=== PATIENT | male | born 1960 | race Caucasian/White ===

== ENCOUNTER 2019-12-04 23:27 | Inpatient (IN) | payer OTHER, SELFPAY ==
--- NOTE | 2019-12-05 00:43 | PDOC.HHP ---
Hospitalist HPI - History of Present Illness Abdominal and chest pain History of Present Illness: Patient is a 59 year old male with PMH colitis, diverticulitis, depression, GI problems, frequent UTI, obesity transferred from [facility] for abdominal and chest pain. He developed abdominal pain and diarrhea a few weeks ago, after he was monitored in another hospital for a few days rectal bleeding, no endoscopy/ colonoscopy was done at that time. Ever since has had intermittent loose stools and abdominal pain. Associated symptoms include flatus, nausea, no vomiting or shortness of breath. Chest pain began today, as a band like sensation around chest, numbness in hands. He denies history of heart disease or cardiac workup of any kind. At outside hospital, he was tachycardic HR 104. EKG did not show acute findings. Normal cardiac enzymes. Pain is down to a 3 from a 5 with aspirin and a single nitroglycerin. CTA was completed and did not show PE. CT of the abdomen shows cecal colitis. He recieved ASA, cipro, flagyl at other hospital. Of note, there was a pancreatic lesion observed on CT chest as incindental finding, lipase was around 150. 100 pages outside records reviewed, pertinent findings include: wbc 11.9, ct t/a /p impression of cecal wall thickening with inflammation, appendicitis could not be excluded, colonic mass could not be excluded, hypoechoic pancreatic mass observed, short term followup recommended. No PE observed. CXR low lung volumes , atalectasis. Hospitalist ROS - Review of Systems Eyes: denies: pain, vision change, conjunctivae inflammation, eyelid inflammation, redness, other ENT: denies: ear pain, ear discharge, nose pain, nose discharge, nose congestion , mouth pain, mouth swelling, throat pain, throat swelling, other Respiratory: denies: cough, dry, shortness of breath, hemoptysis, SOB with excertion, pleuritic pain, sputum, wheezing, other Cardiovascular: reports: chest pain. denies: palpitations, orthopnea, paroxysmal noc. dyspnea, edema, light headedness, other Gastrointestinal: reports: nausea, abdominal pain, diarrhea. denies: vomiting, constipation, melena, hematochezia, other Genitourinary: denies: dysuria, frequency, incontinence, hematuria, retention, other Musculoskeletal: denies: neck pain, shoulder pain, arm pain, back pain, hand pain, leg pain, foot pain, other Skin: denies: rash, lesions, cassidy, bruising, other Neurological: denies: weakness, numbness, incoordination, change in speech, confusion, seizures, other All other systems reviewed; all pertinent +/- noted in HPI/Subj Hospitalist History - Past Medical History Other Medical History: colitis, diverticulitis, depression, GI problems, frequent UTI, obesity - Past Surgical History Past Surgical History: reports: no pertinent history - Family History Family History: reports: no pertinent history - Social History Smoking Status: Never smoker Alcohol: reports: None Drugs: reports: none - Exam General Appearance: NAD, awake alert Eye: PERRL, anicteric sclera ENT: normocephalic atraumatic, no oropharyngeal lesions, moist mucosa Neck: supple, symmetric, no JVD, no thyromegaly, no lymphadenopathy, no carotid bruit Heart: RRR, no murmur, no gallops, no rubs, normal peripheral pulses Respiratory: CTAB, no wheezes, no rales, no ronchi, normal chest expansion, no tachypnea, normal percussion Gastrointestinal: soft, non-tender, non-distended, normal bowel sounds, no palpable masses, no hepatomegaly, no splenomegaly, no bruit Extremities: no cyanosis, no clubbing, no edema Skin: normal turgor, no lesions, no rashes Neurological: cranial nerve grossly intact, normal sensation to touch, no weakness, no focal deficits, no new deficit Musculoskeletal: normal tone, normal strength, no muscle wasting Psychiatric: normal affect, normal behavior, A&O x 3 Hospitalist Results - Labs Lab results: Troponin I 0.013 ng/mL (< 0.028) 12/04/19 23:54 Additional comment: VITAL SIGNS Blanca Dec 05, 2019 00:01 NAOMI Schmid Lee BP: 144/87 Pulse: 82 Resp: 16 Temp: 98.2 (Oral) Pain: 2 O2 sat: 99 on (Room Air) Time: 12/05/2019 00:01. 100 pages outside records reviewed, see hpi for pertinent findings - EKG Interpretation EKG: NSR 86 bpm nonspecific t wave changes Hospitalist H&P A/P - Plan Plan: Patient is a 59 year old male with PMH colitis, diverticulitis, depression, rectal bleed, frequent UTI, obesity transferred from [facility] for abdominal and chest pain. # colitis/diverticulitis # sepsis due to colitis - tachycardia, leukocytosis # pancreatic mass - admit to floor - IVF - continue cipro/flagyl - consider repeat CT in 24-48 hours (got contrast already) to rule out appendicitis and see if pancreatic mass can be characterized, alternately outpatient imaging (CT/MRI) could be pursued to rule out pancreatic cancer - should have colonoscopy after recovered from this illness, mass could not be ruled out and had recent rectal bleeding with no explanation # depression - resume home meds once med rec complete # recent rectal bleed - no colonoscopy performed, patient monitored and discharged, this was recent so will opt for SCD for dvt ppx # atalectasis - IS # chest pain - continue ASA/statin, has never had heart workup, trend troponins and consider stress test before discharge, though symptoms have improved # DVT/GI ppx
[2019-12-05] MEDS ORDERED: Guaifenesin DM 100-10/5 ML UDCUP PO PRN (01:13)
[2019-12-05] MEDS ORDERED: Labetalol HCl 100 MG/20 ML VIAL SLOW IVP PRN (01:13)
[2019-12-05] MEDS ORDERED: Promethazine HCl 12.5 MG in Sodium Chloride 0.9% 50 ML IVPB PRN (01:13)
[2019-12-05] MEDS ORDERED: Morphine 2 MG/ML VIAL SLOW IVP PRN (01:13)
[2019-12-05] MEDS ORDERED: hydrALAZINE 20 MG/ML VIAL SLOW IVP PRN (01:13)
[2019-12-05] MEDS ORDERED: Acetaminophen 325 MG TAB PO PRN (01:13)
[2019-12-05] MEDS ORDERED: Ondansetron PF 4 MG/2 ML Vial IVP PRN (01:13)
[2019-12-05] MEDS ORDERED: cloNIDine 0.1 MG TAB PO PRN (01:13)
[2019-12-05] MEDS ORDERED: Electrolyte Replacement Protoc 1 EACH EACH FS PRN (01:15)
[2019-12-05] MEDS ORDERED: Sodium Chloride 0.9% 1,000 ML IV SCH (01:45)
[2019-12-05] MEDS: Sodium Chloride 0.9% 1,000 ML IV SCH ×2 (02:16→15:02)
[2019-12-05 02:47] LABS: #Basophils 0.1 thou/uL (0.0-0.2); #Eosinphils 0.1 thou/uL (0.0-0.7); #Monocytes 1.3 thou/uL (0.11-0.59); #Neutrophils 7.8 thou/uL (1.40-6.50); %Basophils 0.8 % (0.0-1.0); %Eosinophils 0.8 % (0.0-10.0); %Lymphocytes 17.5 % (21.0-51.0); %Monocytes 11.8 % (0.0-10.0); Hemoglobin 15.8 g/dL (14.0-18.0); Mean Corpuscular HGB CONC 34.1 g/dL (32.0-36.0); Mean Corpuscular Hemoglobin 32.4 pg (27.0-31.0); Mean Corpuscular Volume 94.8 fL (78.0-98.0); Mean Platelet Volume 9.2 fL (7.4-10.4); Platelet Count 187 thou/uL (130-400); RBC Distribution Width 11.8 % (11.5-14.5); White Blood Cell (WBC) Count 11.3 thou/uL (4.8-10.8)
[2019-12-05 03:13] LABS: Troponin I 0.023 ng/mL (< 0.028)
[2019-12-05 03:19] LABS: Anion Gap 14 mmol/L (10-20); BUN (Urea Nitrogen) 14 mg/dL (8.4-25.7); Calc. Creatinine Clearance 163 mL/min (70-130); Calcium 8.8 mg/dL (7.8-10.44); Carbon Dioxide 20 mmol/L (22-29); Chloride 108 mmol/L (98-107); Estimated GFR-MDRD 66; Glucose 115 mg/dL (70-105); Magnesium 2.1 mg/dL (1.6-2.6); Potassium 4.3 mmol/L (3.5-5.1); Sodium 138 mmol/L (136-145)
[2019-12-05] MEDS: Cipro 250 MG TAB PO SCH ×2 (05:24→19:50)
[2019-12-05 07:01] LABS: Troponin I 0.017 ng/mL (< 0.028)
[2019-12-05] MEDS: Aspirin 81 mg Enteric Coated Tablet PO SCH (08:00)
[2019-12-05] MEDS: metroNIDAZOLE 500 MG TAB PO SCH ×3 (08:00→21:00)
[2019-12-05] MEDS: Famotidine 20 MG TAB PO SCH ×2 (08:00→21:01)
[2019-12-05 13:29] LABS: SARS-CoV-2 MS2 Positive; SARS-CoV-2 N Gene Negative; SARS-CoV-2 S Gene Negative; SARS-CoV-2 by NAA Not Detected (NotDetected); SARS-CoV-2 orf1ab Negative
--- NOTE | 2019-12-05 14:05 | PDOC.HOSPP ---
- Subjective Encounter Date: 12/05/19 Encounter Time: 14:03 Subjective: Pt seen and examined by me for the first time. Chart and records reviewed. Pt presented due to abdominal pain at OSH and was transferred here after CT a/p showed cecal inflammation and evidence of colitis. Pt states that his abdominal pain has improved slightly. Bowel movements with lots of gas and greasy stool, but no diarrhea, blood, or melena. Pt denies N/V. Denies chest pain, SOB, palpitations. has been tolerating PO fluids. - Objective Vital Signs & Weight: Vital Signs (12 hours) Temp Pulse Resp BP Pulse Ox 12/05/19 12:00 98.5 F 83 18 124/78 96 12/05/19 07:06 98.7 F 85 18 117/74 98 12/05/19 03:05 98.4 F 89 17 127/78 99 Weight Admit Weight 357 lb 11.2 oz Weight 162 lb 4 oz I&O: 12/04/19 12/05/19 12/06/19 06:59 06:59 06:59 Intake Total 1421 Balance 1421 Result Diagrams: 12/05/19 02:25 12/05/19 02:25 Hospitalist ROS - Review of Systems Constitutional: denies: fever, chills, sweats, weakness, malaise, other Eyes: denies: vision change ENT: denies: nose congestion, throat pain Respiratory: denies: cough, dry, shortness of breath, hemoptysis, SOB with excertion, pleuritic pain, sputum, wheezing, other Cardiovascular: denies: chest pain, palpitations, orthopnea, paroxysmal noc. dyspnea, edema, light headedness, other Gastrointestinal: reports: abdominal pain. denies: nausea, vomiting, diarrhea, constipation, melena, hematochezia, other Genitourinary: denies: dysuria, frequency, incontinence, hematuria, retention, other Skin: denies: rash Neurological: denies: weakness, numbness - Medication Medications: Active Medications Generic Name Dose Route Start Last Admin Trade Name Freq PRN Reason Stop Dose Admin Aspirin 81 mg 12/05/19 09:00 12/05/19 08:00 Ecotrin PO 81 mg DAILY APURVA Administration Ciprofloxacin 250 mg 12/05/19 06:00 12/05/19 05:24 Cipro PO 250 mg 0600,2000 APURVA Administration Famotidine 20 mg 12/05/19 09:00 12/05/19 08:00 Pepcid PO 20 mg BID APURVA Administration Sodium Chloride 1,000 mls @ 75 mls/hr 12/05/19 01:45 12/05/19 02:16 Normal Saline 0.9% IV 1,000 mls .[id number] APURVA Administration Metronidazole 500 mg 12/05/19 09:00 12/05/19 08:00 Flagyl PO 500 mg TID APURVA Administration - Exam General Appearance: NAD, awake alert Eye: anicteric sclera ENT: normocephalic atraumatic, no oropharyngeal lesions, moist mucosa Neck: supple, symmetric, no JVD, no thyromegaly, no lymphadenopathy, no carotid bruit Heart: RRR, no murmur, no gallops, no rubs, normal peripheral pulses Respiratory: CTAB, no wheezes, no rales, no ronchi, normal chest expansion, no tachypnea, normal percussion Gastrointestinal: soft, non-distended, normal bowel sounds, no palpable masses, no hepatomegaly, no splenomegaly, no bruit, tender to palpation Extremities: no cyanosis, no clubbing, no edema Skin: normal turgor, no lesions, no rashes Neurological: cranial nerve grossly intact, normal sensation to touch, no weakness, no focal deficits, no new deficit Psychiatric: normal affect, normal behavior, A&O x 3 Hosp A/P (1) History of diverticulitis Code(s): Z87.19 - PERSONAL HISTORY OF OTHER DISEASES OF THE DIGESTIVE SYSTEM Status: Acute (2) Chest pain Code(s): R07.9 - CHEST PAIN, UNSPECIFIED Status: Acute (3) Pancreatic mass Status: Acute - Plan 59M with pmhx of diverticulitis, recurrent UTIs, obesity, and recent admission in September of 2019 for lower GIB who presented to OSH for chest/abdominal pain found to have colitis on CT a/p. Colitis of presumed infectious origin: Pt with 2 day history of abdominal pain and mild intermittent diarrhea. CT a/p showed cecal mucosal wall thickening with enlarged RLQ mesenteric and paracecal lymph nodes. Pt started on cipro/flagyl. Abd pain improving. Abdominal exam is non-peritoneal. Afebrile, with WBC of 11.3. HD stable. Plan: -Continue cipro/flagyl -Trend WBC -Clear liquid diet -Serial abdominal exams -Consider GI/General surgery consult if clinically worsens Chest pain: Pt described both lower abdominal pain and epigastric band-like pain. Received ASA and nitro at OSH which improved his pain. Denies any repeated episodes. EKG NSR with no ischemic changes. Troponin flat. CTA at OSH negative for PE. Plan: -Telemetry -Continue ASA 81 mg daily -Continue Atorvastatin 40 mg daily -Outpatient f/u with PCP. Pancreatic Mass: CT of a/p showed a hypoechoic lesion in the pancreas. Lipase at OSH 150. Will need outpatient follow up. Plan: -Outpatient follow up Hx of lower GIB: Pt with recent admission in September 2019 for lower GIB. Was supposed to get colonoscopy as f/u, but never completed. Pt denies any recent bleeding episodes. Will need outpatient f/u. Plan: -Outpatient colonoscopy DVT prophylaxis: lovenox Case discussed with attending physician, Dr. Quan.
[2019-12-05] MEDS: Atorvastatin Calcium 40 MG TAB PO SCH (21:00)
[2019-12-05] MEDS: Enoxaparin Sodium 40 MG/0.4 ML SYRINGE SC SCH (21:01)
[2019-12-06] MEDS: Sodium Chloride 0.9% 1,000 ML IV SCH ×2 (03:47→18:40)
[2019-12-06 05:32] LABS: #Basophils 0.1 thou/uL (0.0-0.2); #Eosinphils 0.2 thou/uL (0.0-0.7); #Lymphocytes 1.7 thou/uL (1.20-3.40); #Monocytes 0.9 thou/uL (0.11-0.59); #Neutrophils 4.3 thou/uL (1.40-6.50); %Basophils 0.9 % (0.0-1.0); %Eosinophils 2.6 % (0.0-10.0); %Lymphocytes 24.1 % (21.0-51.0); %Monocytes 12.8 % (0.0-10.0); %Neutrophils 59.6 % (42.0-75.0); Hemoglobin 14.5 g/dL (14.0-18.0); Mean Corpuscular HGB CONC 33.3 g/dL (32.0-36.0); Mean Corpuscular Hemoglobin 31.6 pg (27.0-31.0); Mean Corpuscular Volume 94.9 fL (78.0-98.0); Mean Platelet Volume 9.6 fL (7.4-10.4); Platelet Count 157 thou/uL (130-400); RBC Distribution Width 11.7 % (11.5-14.5); White Blood Cell (WBC) Count 7.2 thou/uL (4.8-10.8)
[2019-12-06] MEDS: Cipro 250 MG TAB PO SCH ×2 (05:50→20:20)
[2019-12-06 05:57] LABS: Anion Gap 11 mmol/L (10-20); BUN (Urea Nitrogen) 9 mg/dL (8.4-25.7); Calc. Creatinine Clearance 199 mL/min (70-130); Calcium 8.5 mg/dL (7.8-10.44); Carbon Dioxide 22 mmol/L (22-29); Chloride 107 mmol/L (98-107); Estimated GFR-MDRD 82; Glucose 111 mg/dL (70-105); Magnesium 1.9 mg/dL (1.6-2.6); Potassium 3.9 mmol/L (3.5-5.1); Sodium 136 mmol/L (136-145)
[2019-12-06] MEDS ORDERED: Magnesium 2 GM/50 ML 2 GM in Premix Bag 1 BAG IVPB SCH (06:45)
[2019-12-06 08:09] LABS: Bilirubin Negative (Negative); Blood, Urine Negative (Negative); Clarity Clear (Clear); Glucose, Urine (Dipstick) Normal (Negative); Ketone, Urine Negative (Negative); Leukocyte 75 Leu/uL (Negative); Nitrite Negative (Negative); Protein, Urine (Dipstick) Negative (Neg-Trace); Specific Gravity, Urine 1.008 (1.002-1.036); Urobilinogen Normal mg/dL (Less than 2); pH, Urine 5.5 (5.0-9.0)
[2019-12-06 08:20] LABS: Bacteria/HPF Rare-Few HPF (None Seen); RBC/HPF 0-3 HPF (0-3); Squamous Epithelial 0-3 HPF (0-3); WBC/HPF 0-3 HPF (0-3)
[2019-12-06] MEDS: metroNIDAZOLE 500 MG TAB PO SCH ×3 (09:13→20:21)
[2019-12-06] MEDS: Famotidine 20 MG TAB PO SCH ×2 (09:13→20:21)
[2019-12-06] MEDS: Aspirin 81 mg Enteric Coated Tablet PO SCH (09:13)
--- NOTE | 2019-12-06 14:29 | PDOC.HOSPP ---
- Subjective Encounter Date: 12/06/19 Subjective: The patient reported some loose stools today. - Objective Vital Signs & Weight: Vital Signs (12 hours) Temp Pulse Resp BP Pulse Ox 12/06/19 11:19 98.3 F 76 18 136/83 98 12/06/19 07:37 98.3 F 79 19 125/79 99 12/06/19 03:47 98.1 F 72 16 136/85 98 Weight Admit Weight 357 lb 11.2 oz Weight 362 lb I&O: 12/05/19 12/06/19 12/07/19 06:59 06:59 06:59 Intake Total 1421 3170 Output Total 300 150 Balance 1421 2870 -150 Result Diagrams: 12/06/19 04:48 12/06/19 04:48 Hospitalist ROS - Medication Medications: Active Medications Generic Name Dose Route Start Last Admin Trade Name Freq PRN Reason Stop Dose Admin Aspirin 81 mg 12/05/19 09:00 12/06/19 09:13 Ecotrin PO 81 mg DAILY APURVA Administration Atorvastatin Calcium 40 mg 12/05/19 21:00 12/05/19 21:00 Lipitor PO 40 mg HS APURVA Administration Ciprofloxacin 250 mg 12/05/19 06:00 12/06/19 05:50 Cipro PO 250 mg 0600,2000 APURVA Administration Enoxaparin Sodium 40 mg 12/05/19 21:00 12/05/19 21:01 Lovenox SC 40 mg 2100 APURVA Administration Famotidine 20 mg 12/05/19 09:00 12/06/19 09:13 Pepcid PO 20 mg BID APURVA Administration Sodium Chloride 1,000 mls @ 75 mls/hr 12/05/19 01:45 12/06/19 03:47 Normal Saline 0.9% IV 1,000 mls .[id number] APURVA Administration Metronidazole 500 mg 12/05/19 09:00 12/06/19 09:13 Flagyl PO 500 mg TID APURVA Administration Sodium Chloride 10 ml 12/06/19 09:00 12/06/19 09:14 Flush - Normal Saline IVF Not Given Q12HR APURVA - Exam General Appearance: awake alert ENT: normocephalic atraumatic Neck: supple, no JVD Respiratory: normal chest expansion, no tachypnea Gastrointestinal: soft Neurological: cranial nerve grossly intact, no focal deficits Hosp A/P (1) Colitis presumed infectious Code(s): K52.9 - NONINFECTIVE GASTROENTERITIS AND COLITIS, UNSPECIFIED Status : Acute (2) History of diverticulitis Code(s): Z87.19 - PERSONAL HISTORY OF OTHER DISEASES OF THE DIGESTIVE SYSTEM Status: Acute (3) Pancreatic mass Status: Acute - Plan The patient abdominal pain is improving. He is able to tolerate liquid diet today. No nausea or vomiting. Continue antibiotics. His creatinine level improved so I will go ahead and order CT scan of the abdomen and pelvis with IV contrast to further characterize the reported pancreatic mass.
--- NOTE | 2019-12-06 17:40 | CT ---
CT ABDOMEN AND PELVIS WITH AND WITHOUT IV CONTRAST: 12/06/19 PROVIDED CLINICAL HISTORY: Pancreatic mass. FINDINGS: No comparison examinations are available. The visualized lung bases are free of significant opacity. There is an ill-defined hypodense mass pre sent within the proximal body of the pancreas measuring about 1.2 cm in greatest transverse dimension . This is best appreciated on the arterial phase imaging but is not associated with arterial phase of enhancement. No additional pancreatic mass is evident. There is no pancreatic ductal dilatation. The re is absence of a normal appearing pancreatic tail. The liver, spleen, kidneys and adrenal glands appear unremarkable. There is irregular mural thickening and associated mass involving the cecum. This measures at least 7 cm in craniocaudal dimension and at least 5.3 x 5.3 cm in greatest transverse dimensions. There is a dilated and abnormally enhancing appendix, without surrounding inflammatory fat stranding. There are numerous abnormally enlarged lymph nodes present within the right lower quadrant mesentery as well a s nodular thickening of the retroperitoneal fat posterior to the cecum. There is no evidence for bowel obstruction. No free fluid or free air is evident. The prostate gland appears enlarged. There is no evidence for additional regional lymph node enlargem ent. Vascular calcifications are seen. The osseous structures demonstrate no concerning lytic or blastic lesions. Prominent lumbar spine deg enerative changes are seen. IMPRESSION: 1. 1.2 cm pancreatic body mass suspicious for pancreatic malignancy such as adenocarcinoma. 2. Cecal mass compatible with malignancy with associated abnormality of the right lower quadrant mesentery lymph nodes and adjacent retroperitoneal fat. 3. There is a dilated and abnormal enhancing appearance to the appendix without surrounding fat stranding changes. This could reflect changes of early appendicitis on the basis of obstruction due t o the mass. Neoplastic involvement could also be considered. Surgical consultation is recommended. POS: MARIEL
[2019-12-06] MEDS: Atorvastatin Calcium 40 MG TAB PO SCH (20:20)
[2019-12-06] MEDS: Enoxaparin Sodium 40 MG/0.4 ML SYRINGE SC SCH (20:21)
[2019-12-07] MEDS ORDERED: Phenazopyridine HCl 100 MG TAB PO SCH (00:30)
[2019-12-07] MEDS: HYDROcodone/Acetaminophen 5/325 mg Tablet PO PRN ×4 (00:49→20:18)
[2019-12-07 05:24] LABS: #Basophils 0.1 thou/uL (0.0-0.2); #Eosinphils 0.2 thou/uL (0.0-0.7); #Lymphocytes 1.6 thou/uL (1.20-3.40); #Neutrophils 5.2 thou/uL (1.40-6.50); %Basophils 0.6 % (0.0-1.0); %Eosinophils 2.9 % (0.0-10.0); %Lymphocytes 19.5 % (21.0-51.0); %Monocytes 12.1 % (0.0-10.0); %Neutrophils 64.9 % (42.0-75.0); Hemoglobin 14.7 g/dL (14.0-18.0); Mean Corpuscular HGB CONC 33.2 g/dL (32.0-36.0); Mean Corpuscular Hemoglobin 31.5 pg (27.0-31.0); Mean Corpuscular Volume 94.9 fL (78.0-98.0); Mean Platelet Volume 9.5 fL (7.4-10.4); Platelet Count 169 thou/uL (130-400); RBC Distribution Width 11.9 % (11.5-14.5); Red Blood Cell (RBC) Count 4.66 mill/uL (4.70-6.10)
[2019-12-07] MEDS: Cipro 250 MG TAB PO SCH ×2 (05:35→20:45)
[2019-12-07 05:39] LABS: Anion Gap 11 mmol/L (10-20); BUN (Urea Nitrogen) 8 mg/dL (8.4-25.7); Calc. Creatinine Clearance 177 mL/min (70-130); Calcium 8.7 mg/dL (7.8-10.44); Carbon Dioxide 24 mmol/L (22-29); Chloride 106 mmol/L (98-107); Estimated GFR-MDRD 71; Glucose 103 mg/dL (70-105); Magnesium 2.2 mg/dL (1.6-2.6); Potassium 3.8 mmol/L (3.5-5.1); Sodium 137 mmol/L (136-145)
[2019-12-07] MEDS: Sodium Chloride 0.9% 1,000 ML IV SCH ×2 (06:24→20:09)
[2019-12-07] MEDS: metroNIDAZOLE 500 MG TAB PO SCH ×3 (07:59→20:16)
[2019-12-07] MEDS: Phenazopyridine HCl 100 MG TAB PO SCH ×3 (07:59→18:35)
[2019-12-07] MEDS: Famotidine 20 MG TAB PO SCH ×2 (07:59→20:16)
[2019-12-07] MEDS: Aspirin 81 mg Enteric Coated Tablet PO SCH (07:59)
[2019-12-07] MEDS ORDERED: Tamsulosin HCl 0.4 MG CAP PO SCH (10:15)
--- NOTE | 2019-12-07 10:16 | PDOC.HOSPP ---
- Subjective Subjective: Assuming care: This is an unfortunate 59 years old gentleman, who was admitted 2 days ago for presumed diverticulitis/colitis, he was started on IV antibiotics and conservative mgt, his symptoms now improved. There was an incidental finding on his initial CT abdomen showed possible pancreatic mass. Repeated CT abdomen pelvic with contrast, showed a 1.2 cm pancreatic mass, as well as cecal mass, and enlarged appendix concerning for underlying malignancy. At this point , patient is tolerating regular diet. His abdominal pain has improved. He does complain of urinary frequency, and retention. Patient reported that he had been experiencing with abdominal discomfort for the last few months, no significant weight change. Patient denies any history of endoscopic evaluation. Family history significant for sister with lung cancer with mets to the bones. No family history of colon cancer or pancreatic cancer. - Objective Vital Signs & Weight: Vital Signs (12 hours) Temp Pulse Resp BP Pulse Ox 12/07/19 08:00 98.2 F 87 18 135/78 99 12/07/19 04:25 98.1 F 24 L 76 H 138/87 95 12/06/19 23:30 98.7 F 88 22 H 153/83 H 97 Weight Admit Weight 357 lb 11.2 oz Weight 362 lb I&O: 12/06/19 12/07/19 12/08/19 06:59 06:59 06:59 Intake Total 3170 1850 Output Total 300 150 Balance 2870 1700 Result Diagrams: 12/07/19 04:21 12/07/19 04:21 Hospitalist ROS - Medication Medications: Active Medications Generic Name Dose Route Start Last Admin Trade Name Freq PRN Reason Stop Dose Admin Hydrocodone Bitart/Acetaminophen 1 tab 12/05/19 01:13 12/07/19 00:49 [place] 5/325 PO 1 tab Q4H PRN Administration Moderate Pain (4-6) Aspirin 81 mg 12/05/19 09:00 12/07/19 07:59 Ecotrin PO 81 mg DAILY APURVA Administration Atorvastatin Calcium 40 mg 12/05/19 21:00 12/06/19 20:20 Lipitor PO 40 mg HS APURVA Administration Ciprofloxacin 250 mg 12/05/19 06:00 12/07/19 05:35 Cipro PO 250 mg 0600,2000 APURVA Administration Famotidine 20 mg 12/05/19 09:00 12/07/19 07:59 Pepcid PO 20 mg BID APURVA Administration Sodium Chloride 1,000 mls @ 75 mls/hr 12/05/19 01:45 12/07/19 06:24 Normal Saline 0.9% IV 1,000 mls .[id number] APURVA Administration Metronidazole 500 mg 12/05/19 09:00 12/07/19 07:59 Flagyl PO 500 mg TID APURVA Administration Phenazopyridine HCl 100 mg 12/07/19 09:00 12/07/19 07:59 Pyridium PO 100 mg PC APURVA Administration Sodium Chloride 10 ml 12/06/19 09:00 12/07/19 08:00 Flush - Normal Saline IVF Not Given Q12HR APURVA - Exam General Appearance: NAD, awake alert Eye: PERRL, anicteric sclera ENT: normocephalic atraumatic, no oropharyngeal lesions Neck: supple, no JVD Heart: RRR, no murmur, no gallops Respiratory: CTAB, no wheezes Gastrointestinal: soft, non-tender, normal bowel sounds Gastrointestinal - other findings: obese Extremities: no cyanosis, no clubbing, no edema Skin: normal turgor Neurological: cranial nerve grossly intact, no focal deficits Musculoskeletal: normal tone, normal strength Psychiatric: normal affect, normal behavior, A&O x 3 Hosp A/P - Plan ASSESSMENT and plan: This is unfortunate 59 years old gentleman who was presented with abdominal discomfort/diarrhea, initially admitted on 12/05/2019 for presumed diverticulitis/colitis. Further work-up on repeated CT scan, demonstrated 1.2 pancreatic mass, as well as cecal mass and enlarged appendix concerning for possible underlying malignancy. #1.2 cm pancreatic mass and cecal mass (7 x 5.3 x 3.3 cm) concerning for underlying malignancy, unknown primary suspect pancreatic cancer. #Dilated appendix - early appendicitis vs neoplastic process on CT - abd exam benign #Presumed diverticulits/Colitis #Urinary retention/Frequency - UA negative, suspect underlying BPH #Morbid obesity with BMI of 49.1 kg/m 12/07/19 Clinically improving, patient is tolerating regular diet and abd pain has improved; however, will change to clear liquid diet, with anticipation further work-up is required given CT findings. Consult on GI and surgery for further work-up. Patient will likely need tissue biopsy. Check tumor markers including CEA, CA 19-9, PSA Given his urinary retention/frequency, his UA was unremarkable. We will do a bladder scan, start him on Flomax empirically. Continue empiric IV antibiotics for now. Hold Lovenox, start SCD for DVT prophylaxis with anticipation of further procedure is needed; will resume Lovenox once w/u complete.
--- NOTE | 2019-12-07 11:55 | EKG ---
Test Reason : Blood Pressure : / mmHG Vent. Rate : 086 BPM Atrial Rate : 086 BPM P-R Int : 146 ms QRS Dur : 086 ms QT Int : 376 ms P-R-T Axes : 035 -28 033 degrees QTc Int : 449 ms Normal sinus rhythm Possible Lateral infarct , age undetermined Abnormal ECG Confirmed by DAVE DURAN ([id number]), editor managing newspaper MISAEL MARTINEZ ([id number]) on 12/07/2019 11:55:24 AM Referred By: Confirmed By:DAVE DURAN
[2019-12-07 12:39] LABS: CEA, Serum 3.31 ng/mL (< or = 5.0)
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
[2019-12-07] MEDS: Atorvastatin Calcium 40 MG TAB PO SCH (20:16)
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
[2019-12-08 04:13] LABS: #Basophils 0.1 thou/uL (0.0-0.2); #Eosinphils 0.1 thou/uL (0.0-0.7); #Lymphocytes 1.4 thou/uL (1.20-3.40); #Monocytes 1.1 thou/uL (0.11-0.59); %Basophils 0.5 % (0.0-1.0); %Eosinophils 0.6 % (0.0-10.0); %Lymphocytes 13.6 % (21.0-51.0); %Monocytes 9.9 % (0.0-10.0); %Neutrophils 75.3 % (42.0-75.0); Hemoglobin 14.1 g/dL (14.0-18.0); Mean Corpuscular HGB CONC 33.7 g/dL (32.0-36.0); Mean Corpuscular Hemoglobin 32.1 pg (27.0-31.0); Mean Corpuscular Volume 95.3 fL (78.0-98.0); Mean Platelet Volume 9.2 fL (7.4-10.4); Platelet Count 156 thou/uL (130-400); RBC Distribution Width 11.7 % (11.5-14.5); White Blood Cell (WBC) Count 10.6 thou/uL (4.8-10.8)
[2019-12-08 04:35] LABS: ALT (SGPT) 14 U/L (8-55); AST (SGOT) 30 U/L (5-34); Albumin 3.5 g/dL (3.5-5.0); Alkaline Phosphatase 64 U/L (40-110); Anion Gap 11 mmol/L (10-20); BUN (Urea Nitrogen) 7 mg/dL (8.4-25.7); Bilirubin, Total 0.6 mg/dL (0.2-1.2); Calc. Creatinine Clearance 174 mL/min (70-130); Calcium 8.9 mg/dL (7.8-10.44); Carbon Dioxide 24 mmol/L (22-29); Chloride 106 mmol/L (98-107); Estimated GFR-MDRD 70; Globulin 2.4 g/dL (2.4-3.5); Glucose 112 mg/dL (70-105); Potassium 4.2 mmol/L (3.5-5.1); Protein, Total 5.9 g/dL (6.0-8.3); Sodium 137 mmol/L (136-145)
[2019-12-08 04:47] LABS: INR-International Normal Ratio 1.2; Prothrombin Time 15.6 sec (12.0-14.7)
[2019-12-08] MEDS: Cipro 250 MG TAB PO SCH ×2 (06:08→19:57)
[2019-12-08] MEDS ORDERED: ALPRAZolam 0.5 MG TAB PO PRN (08:11)
[2019-12-08] MEDS: Aspirin 81 mg Enteric Coated Tablet PO SCH (09:28)
[2019-12-08] MEDS: Famotidine 20 MG TAB PO SCH ×2 (09:28→19:57)
[2019-12-08] MEDS: metroNIDAZOLE 500 MG TAB PO SCH ×3 (09:28→19:57)
[2019-12-08] MEDS: Phenazopyridine HCl 100 MG TAB PO SCH ×3 (09:29→18:19)
[2019-12-08] MEDS: Tamsulosin HCl 0.4 MG CAP PO SCH (09:29)
[2019-12-08] MEDS: Sodium Chloride 0.9% 1,000 ML IV SCH (09:32)
--- NOTE | 2019-12-08 14:20 | PDOC.HOSPP ---
- Subjective Subjective: Feeling much better after had Vasques placed. No acute event overnight. appreciate input from specialists - Objective Vital Signs & Weight: Vital Signs (12 hours) Temp Pulse Resp BP BP Pulse Ox 12/08/19 11:38 98.5 F 111 H 24 H 168/80 H 95 12/08/19 08:00 95 12/08/19 07:55 99.0 F 89 18 170/76 H 98 12/08/19 04:00 98.2 F 93 18 131/70 93 L Weight Admit Weight 357 lb 11.2 oz Weight 362 lb I&O: 12/07/19 12/08/19 12/09/19 06:59 06:59 06:59 Intake Total 1850 2720 Output Total 150 2075 700 Balance 1700 645 -700 Result Diagrams: 12/08/19 03:31 12/08/19 03:31 Radiology Reviewed by me: Yes EKG Reviewed by me: Yes Hospitalist ROS - Medication Medications: Active Medications Generic Name Dose Route Start Last Admin Trade Name Freq PRN Reason Stop Dose Admin Hydrocodone Bitart/Acetaminophen 1 tab 12/05/19 01:13 12/07/19 20:18 Lovilia 5/325 PO 1 tab Q4H PRN Administration Moderate Pain (4-6) Aspirin 81 mg 12/05/19 09:00 12/08/19 09:28 Ecotrin PO 81 mg DAILY APURVA Administration Atorvastatin Calcium 40 mg 12/05/19 21:00 12/07/19 20:16 Lipitor PO 40 mg HS APURVA Administration Ciprofloxacin 250 mg 12/05/19 06:00 12/08/19 06:08 Cipro PO 250 mg 06,1999 APURVA Administration Famotidine 20 mg 12/05/19 09:00 12/08/19 09:28 Pepcid PO 20 mg BID APURVA Administration Sodium Chloride 1,000 mls @ 75 mls/hr 12/05/19 01:45 12/08/19 09:32 Normal Saline 0.9% IV 1,000 mls .[id number] APURVA Administration Metronidazole 500 mg 12/05/19 09:00 12/08/19 09:28 Flagyl PO 500 mg TID APURVA Administration Morphine Sulfate 2 mg 12/05/19 01:13 12/07/19 22:43 Morphine SLOW IVP 2 mg Q4H PRN Administration Moderate to Severe Pain (4-10) Phenazopyridine HCl 100 mg 12/07/19 09:00 12/08/19 09:29 Pyridium PO 100 mg PC APURVA Administration Sodium Chloride 10 ml 12/06/19 09:00 12/08/19 09:29 Flush - Normal Saline IVF 10 ml Q12HR APURVA Administration Tamsulosin HCl 0.4 mg 12/08/19 09:00 12/08/19 09:29 Flomax PO 0.4 mg DAILY APURVA Administration Hosp A/P - Plan General Appearance: NAD, awake alert Eye: PERRL, anicteric sclera ENT: normocephalic atraumatic, no oropharyngeal lesions Neck: supple, no JVD Heart: RRR, no murmur, no gallops Respiratory: CTAB, no wheezes Gastrointestinal: soft, non-tender, normal bowel sounds Gastrointestinal - other findings: obese Extremities: no cyanosis, no clubbing, no edema Skin: normal turgor Neurological: cranial nerve grossly intact, no focal deficits Musculoskeletal: normal tone, normal strength Psychiatric: normal affect, normal behavior, A&O x 3 ASSESSMENT and plan: This is unfortunate 59 years old gentleman who was presented with abdominal discomfort/diarrhea, initially admitted on 12/05/2019 for presumed diverticulitis/colitis. Further work-up on repeated CT scan, demonstrated 1.2 pancreatic mass, as well as cecal mass and enlarged appendix concerning for possible underlying malignancy. #1.2 cm pancreatic mass and cecal mass (7 x 5.3 x 3.3 cm) concerning for underlying malignancy, unknown primary suspect pancreatic cancer. #Dilated appendix - early appendicitis vs neoplastic process on CT - abd exam benign #Presumed diverticulits/Colitis #Urinary retention/Frequency - UA negative, suspect underlying BPH #Morbid obesity with BMI of 49.1 kg/m 12/08/19 Cont current empiric IV abx. GI plan for colonoscopy tomorrow. Leave Vasques in place. Consider voiding trial in couple days prior to discharge. Pt will need further workup at tertiary care center including EUS and eval by surgical oncologist for Whipple procedure, which cannot be done here at our facility. He has no coverage, so referral is difficult. Will consult our CM. PSA slightly elevated. CEA wnl. CA 19-9 pending. Cont supportive cares. Pt is quite depressed given his current situation, will start him on Zoloft at bedtime and prn Xanax. No HI/SI. 12/07/19 Clinically improving, patient is tolerating regular diet and abd pain has improved; however, will change to clear liquid diet, with anticipation further work-up is required given CT findings. Consult on GI and surgery for further work-up. Patient will likely need tissue biopsy. Check tumor markers including CEA, CA 19-9, PSA Given his urinary retention/frequency, his UA was unremarkable. We will do a bladder scan, start him on Flomax empirically. Continue empiric IV antibiotics for now. Hold Lovenox, start SCD for DVT prophylaxis with anticipation of further procedure is needed; will resume Lovenox once w/u complete.
--- NOTE | 2019-12-08 14:28 | PRG ---
DATE OF SERVICE: 12/08/2019 SUBJECTIVE: Mr. Kitchen had a Vasques catheter placed by Urology and his suprapubic pain immediately resolved. A liter of fluid was drained immediately with placement of the catheter. OBJECTIVE: VITAL SIGNS: Temperature 98.5, pulse 111, and blood pressure 168/ 80. GENERAL: He is in no acute distress. Alert and oriented x3. LUNGS: Clear to auscultation bilaterally. HEART: Tachycardic. S1 and S2. ABDOMEN: Soft, nontender, and nondistended. Bowel sounds are present. EXTREMITIES: No lower extremity edema. LABORATORY DATA: White blood cell count 10.6, hemoglobin 14.1, and platelets 156. Creatinine 1.09, albumin 3.5. IMPRESSION: 1. Right colon mass. 2. Question of colitis and intermittent diarrhea. Stool studies have been sent and are pending. 3. Small pancreatic mass measuring 1.2 cm. 4. Obstructive uropathy, relieved with Vasques catheter placement. RECOMMENDATIONS: If his stool studies are negative for Clostridioides difficile or other pathogen, we will proceed with colonoscopy tomorrow as scheduled. Job ID: [id number] MTDD
[2019-12-08] MEDS ORDERED: GoLYTELY 4,000 ml Bottle PO SCH (16:00)
[2019-12-08] MEDS: Atorvastatin Calcium 40 MG TAB PO SCH (19:57)
--- NOTE | 2019-12-08 21:24 | PDOC.GSPN ---
Surgery Progress Note: Subj - Subjective Narrative: Lower abdominal tenderness has basically resolved after placement of Vasques catheter. He had a large amount of retained urine. No further diarrhea. Abdomen is soft nontender nondistended. Colonoscopy is planned tomorrow. No new recommendations and no immediate plans for surgery. Surgery Progress Note: Obj - Vital signs Vital signs: Vital Signs - Most Recent Temp Pulse Resp BP Pulse Ox 98.6 F 105 H 16 140/83 98 12/08/19 19:59 12/08/19 19:59 12/08/19 19:59 12/08/19 19:59 12/08/19 19:59 Surgery Progress Note: Results - Labs Result Diagrams: 12/08/19 03:31 12/08/19 03:31
[2019-12-09] MEDS: Sodium Chloride 0.9% 1,000 ML IV SCH ×2 (00:09→12:25)
[2019-12-09] MEDS: Cipro 250 MG TAB PO SCH ×2 (06:09→19:07)
[2019-12-09] MEDS: Aspirin 81 mg Enteric Coated Tablet PO SCH (08:04)
[2019-12-09] MEDS: Famotidine 20 MG TAB PO SCH ×2 (08:30→20:29)
[2019-12-09] MEDS: Phenazopyridine HCl 100 MG TAB PO SCH ×3 (08:30→19:07)
[2019-12-09] MEDS: metroNIDAZOLE 500 MG TAB PO SCH ×3 (08:30→20:29)
[2019-12-09] MEDS: Tamsulosin HCl 0.4 MG CAP PO SCH (08:30)
[2019-12-09] MEDS ORDERED: Promethazine HCl 25 MG/ML VIAL SLOW IVP PRN (10:52)
[2019-12-09] MEDS ORDERED: Ondansetron HCl/PF 4 MG/2 ML Vial IVP PRN (10:52)
[2019-12-09] MEDS ORDERED: Meperidine HCl/PF 25 MG/ML VIAL SLOW IVP PRN (10:52)
[2019-12-09] MEDS ORDERED: Promethazine HCl 25 MG/ML VIAL IM PRN (10:52)
[2019-12-09] MEDS ORDERED: Ketorolac Tromethamine 30 MG/ML VIAL IVP PRN (10:52)
[2019-12-09] MEDS ORDERED: PROPOFOL 200 MG/20 ML VIAL ONE (11:39)
[2019-12-09] MEDS ORDERED: Lidocaine 1% PF 5 ML VIAL ONE (11:39)
--- NOTE | 2019-12-09 12:26 | OP ---
DATE OF PROCEDURE: 12/09/2019 PROCEDURE PERFORMED: Colonoscopy with biopsy and snare polypectomy. PREOPERATIVE DIAGNOSIS: Abnormal CT scan of the abdomen showing a mass in the right colon. DESCRIPTION OF PROCEDURE: Informed consent was obtained from the patient. He was sedated with total intravenous anesthesia. The rectal exam was performed and revealed a prominent prostate. Rectal exam was otherwise normal. The preparation quality was fair with staining of yellow stool throughout the colon, but this was very thin later and good views were obtained overall. The colonoscope was advanced to the terminal ileum. The mucosa of the terminal ileum was normal. The ileocecal valve was prominent and appeared impacted by a large ulcerated mass in the cecum, which obscures the entire cecum. Multiple biopsies were obtained from the mass. I removed a 6 mm polyp from the hepatic flexure by snare cautery polypectomy. I removed a 5 mm polyp from the distal transverse colon by cold snare polypectomy. I removed a 6 mm polyp from the descending colon by cold snare polypectomy. I removed a 1 cm polyp from the sigmoid colon by snare cautery polypectomy. Retroflexed views in the rectum revealed moderate internal hemorrhoids. IMPRESSION: 1. Large cecum mass biopsied. 2. 6 mm hepatic flexure polyp. 3. 5 mm transverse colon polyp. 4. 6 mm descending polyp. 5. 1 cm sigmoid polyp. 6. Moderate internal hemorrhoids. RECOMMENDATIONS: 1. Await histopathology. 2. The case has been discussed with General Surgery. He has a 1.5 cm mass in the body of the pancreas and Surgery would like to know the status of this mass before proceeding with colon surgery. Recommendation therefore at this point is referral for endoscopic ultrasound of the pancreatic mass and then consultation with Oncologic Surgery and Oncology. 3. He also had urinary retention and elevated PSA and required Vasques catheter placement prior to this procedure having been performed. This will require followup by Urology. 4. Transfer to [place] can be considered as an inpatient for further evaluation versus discharge and outpatient followup. However, the patient's lack of insurance will make all this complicated. Job ID: [id number]
--- NOTE | 2019-12-09 13:13 | PDOC.HOSPP ---
- Subjective Subjective: Patient underwent colonoscopy this morning with polypectomy and biopsy of the large cecal mass. Patient tolerated procedure well. Patient was seen examined at bedside. He is currently sitting up eating lunch. He denies any abdominal pain. Appreciate input from GI and surgery. - Objective Vital Signs & Weight: Vital Signs (12 hours) Temp Pulse Resp BP Pulse Ox 12/09/19 08:00 98.7 F 104 H 20 145/80 H 97 Weight Admit Weight 357 lb 11.2 oz Weight 362 lb I&O: 12/08/19 12/09/19 12/10/19 06:59 06:59 06:59 Intake Total 2720 4000 Output Total 8026 2425 Balance 645 1575 Result Diagrams: 12/08/19 03:31 12/08/19 03:31 Hospitalist ROS - Medication Medications: Active Medications Generic Name Dose Route Start Last Admin Trade Name Freq PRN Reason Stop Dose Admin Hydrocodone Bitart/Acetaminophen 1 tab 12/05/19 01:13 12/07/19 20:18 [place] 5/325 PO 1 tab Q4H PRN Administration Moderate Pain (4-6) Alprazolam 0.5 mg 12/08/19 08:11 12/08/19 22:13 Xanax PO 0.5 mg TIDPRN PRN Administration Anxiety Aspirin 81 mg 12/05/19 09:00 12/09/19 08:04 Ecotrin PO Not Given DAILY APURVA Atorvastatin Calcium 40 mg 12/05/19 21:00 12/08/19 19:57 Lipitor PO 40 mg HS APURVA Administration Ciprofloxacin 250 mg 12/05/19 06:00 12/09/19 06:09 Cipro PO Not Given APURVA Famotidine 20 mg 12/05/19 09:00 12/09/19 08:30 Pepcid PO 20 mg BID APURVA Administration Sodium Chloride 1,000 mls @ 75 mls/hr 12/05/19 01:45 12/09/19 00:09 Normal Saline 0.9% IV Not Given .[id number] APURVA Metronidazole 500 mg 12/05/19 09:00 12/09/19 08:30 Flagyl PO 500 mg TID APURVA Administration Morphine Sulfate 2 mg 12/05/19 01:13 12/07/19 22:43 Morphine SLOW IVP 2 mg Q4H PRN Administration Moderate to Severe Pain (4-10) Phenazopyridine HCl 100 mg 12/07/19 09:00 12/09/19 08:30 Pyridium PO 100 mg PC APURVA Administration Sertraline HCl 50 mg 12/08/19 21:00 12/08/19 20:01 Zoloft PO Not Given HS APURVA Sodium Chloride 10 ml 12/06/19 09:00 12/09/19 08:31 Flush - Normal Saline IVF 10 ml Q12HR APURVA Administration Tamsulosin HCl 0.4 mg 12/08/19 09:00 12/09/19 08:30 Flomax PO 0.4 mg DAILY AUPRVA Administration Hosp A/P - Plan General Appearance: NAD, awake alert Eye: PERRL, anicteric sclera ENT: normocephalic atraumatic, no oropharyngeal lesions Neck: supple, no JVD Heart: RRR, no murmur, no gallops Respiratory: CTAB, no wheezes Gastrointestinal: soft, non-tender, normal bowel sounds Gastrointestinal - other findings: obese Extremities: no cyanosis, no clubbing, no edema Skin: normal turgor Neurological: cranial nerve grossly intact, no focal deficits Musculoskeletal: normal tone, normal strength Psychiatric: normal affect, normal behavior, A&O x 3 ASSESSMENT and plan: This is unfortunate 59 years old gentleman who was presented with abdominal discomfort/diarrhea, initially admitted on 12/05/2019 for presumed diverticulitis/colitis. Further work-up on repeated CT scan, demonstrated 1.2 pancreatic mass, as well as cecal mass and enlarged appendix concerning for possible underlying malignancy. #1.2 cm pancreatic mass and cecal mass (7 x 5.3 x 3.3 cm) concerning for underlying malignancy, unknown primary suspect pancreatic cancer. s/p colonoscopy on 12/09/19 #Dilated appendix - early appendicitis vs neoplastic process on CT - abd exam benign #Presumed diverticulitis/Colitis #Urinary retention/Frequency - UA negative, suspect underlying BPH. Vasques placed. #Morbid obesity with BMI of 49.1 kg/m 12/09/19 s/p colonoscopy with biopsied of cecal mass. PATH pending. Pt will likely need to transfer to tertiary care center or follow up with surgical oncologist and GI as outpatient for further eval of pancreatic mass. Pt is unfunded and not from here locally. Will consult our CM for further assistance. Will keep Vasques in for 1 more days, and voiding trial in AM. cont Flomax. cont empiric IV abx. Appreciate input from specialists. 12/08/19 Cont current empiric IV abx. GI plan for colonoscopy tomorrow. Leave Vasques in place. Consider voiding trial in couple days prior to discharge. Pt will need further workup at tertiary care center including EUS and eval by surgical oncologist for Whipple procedure, which cannot be done here at our facility. He has no coverage, so referral is difficult. Will consult our CM. PSA slightly elevated. CEA wnl. CA 19-9 pending. Cont supportive cares. Pt is quite depressed given his current situation, will start him on Zoloft at bedtime and prn Xanax. No HI/SI. 12/07/19 Clinically improving, patient is tolerating regular diet and abd pain has improved; however, will change to clear liquid diet, with anticipation further work-up is required given CT findings. Consult on GI and surgery for further work-up. Patient will likely need tissue biopsy. Check tumor markers including CEA, CA 19-9, PSA Given his urinary retention/frequency, his UA was unremarkable. We will do a bladder scan, start him on Flomax empirically. Continue empiric IV antibiotics for now. Hold Lovenox, start SCD for DVT prophylaxis with anticipation of further procedure is needed; will resume Lovenox once w/u complete.
[2019-12-09] MEDS: Atorvastatin Calcium 40 MG TAB PO SCH (20:29)
[2019-12-10] MEDS: Sodium Chloride 0.9% 1,000 ML IV SCH ×3 (02:33→16:55)
[2019-12-10] MEDS: Cipro 250 MG TAB PO SCH ×2 (06:24→20:59)
[2019-12-10] MEDS: Aspirin 81 mg Enteric Coated Tablet PO SCH (08:28)
[2019-12-10] MEDS: Famotidine 20 MG TAB PO SCH ×2 (08:28→20:59)
[2019-12-10] MEDS: Tamsulosin HCl 0.4 MG CAP PO SCH (08:28)
[2019-12-10] MEDS: metroNIDAZOLE 500 MG TAB PO SCH ×3 (08:28→20:59)
[2019-12-10] MEDS: Phenazopyridine HCl 100 MG TAB PO SCH ×3 (08:29→18:51)
[2019-12-10 13:37] VITALS: BMI 49.1
--- NOTE | 2019-12-10 15:14 | PDOC.HOSPP ---
- Subjective Subjective: no acute event overnight, feeling well RN reports pt had some hematochezia. he just had biopsy of cecal mass yesterday , so it's expected. - Objective Vital Signs & Weight: Vital Signs (12 hours) Temp Pulse Resp BP Pulse Ox 12/10/19 08:00 98.2 F 84 16 134/79 94 L Weight Admit Weight 357 lb 11.2 oz Weight 362 lb I&O: 12/09/19 12/10/19 12/11/19 06:59 06:59 06:59 Intake Total 4000 1760 Output Total 2425 1150 300 Balance 1575 610 -300 Result Diagrams: 12/08/19 03:31 12/08/19 03:31 Hospitalist ROS - Medication Medications: Active Medications Generic Name Dose Route Start Last Admin Trade Name Freq PRN Reason Stop Dose Admin Hydrocodone Bitart/Acetaminophen 1 tab 12/05/19 01:13 12/07/19 20:18 [place] 5/325 PO 1 tab Q4H PRN Administration Moderate Pain (4-6) Alprazolam 0.5 mg 12/08/19 08:11 12/08/19 22:13 Xanax PO 0.5 mg TIDPRN PRN Administration Anxiety Aspirin 81 mg 12/05/19 09:00 12/10/19 08:28 Ecotrin PO 81 mg DAILY APURVA Administration Atorvastatin Calcium 40 mg 12/05/19 21:00 12/09/19 20:29 Lipitor PO 40 mg HS APURVA Administration Ciprofloxacin 250 mg 12/05/19 06:00 12/10/19 06:24 Cipro PO 250 mg 0600,2000 APURVA Administration Famotidine 20 mg 12/05/19 09:00 12/10/19 08:28 Pepcid PO 20 mg BID APURVA Administration Sodium Chloride 1,000 mls @ 75 mls/hr 12/05/19 01:45 12/10/19 08:30 Normal Saline 0.9% IV 1,000 mls .[id number] APURVA Administration Metronidazole 500 mg 12/05/19 09:00 12/10/19 14:26 Flagyl PO 500 mg TID APURVA Administration Morphine Sulfate 2 mg 12/05/19 01:13 12/07/19 22:43 Morphine SLOW IVP 2 mg Q4H PRN Administration Moderate to Severe Pain (4-10) Phenazopyridine HCl 100 mg 12/07/19 09:00 12/10/19 14:26 Pyridium PO 100 mg PC APURVA Administration Sertraline HCl 50 mg 12/08/19 21:00 12/09/19 20:32 Zoloft PO Not Given HS APURVA Sodium Chloride 10 ml 12/06/19 09:00 12/10/19 08:29 Flush - Normal Saline IVF 10 ml Q12HR APURVA Administration Tamsulosin HCl 0.4 mg 12/08/19 09:00 12/10/19 08:28 Flomax PO 0.4 mg DAILY APURVA Administration Hosp A/P - Plan General Appearance: NAD, awake alert Eye: PERRL, anicteric sclera ENT: normocephalic atraumatic, no oropharyngeal lesions Neck: supple, no JVD Heart: RRR, no murmur, no gallops Respiratory: CTAB, no wheezes Gastrointestinal: soft, non-tender, normal bowel sounds Gastrointestinal - other findings: obese Extremities: no cyanosis, no clubbing, no edema Skin: normal turgor Neurological: cranial nerve grossly intact, no focal deficits Musculoskeletal: normal tone, normal strength Psychiatric: normal affect, normal behavior, A&O x 3 ASSESSMENT and plan: This is unfortunate 59 years old gentleman who was presented with abdominal discomfort/diarrhea, initially admitted on 12/05/2019 for presumed diverticulitis/colitis. Further work-up on repeated CT scan, demonstrated 1.2 pancreatic mass, as well as cecal mass and enlarged appendix concerning for possible underlying malignancy. #1.2 cm pancreatic mass and cecal mass (7 x 5.3 x 3.3 cm) concerning for underlying malignancy, unknown primary suspect pancreatic cancer. s/p colonoscopy on 12/09/19 #Dilated appendix - early appendicitis vs neoplastic process on CT - abd exam benign #Presumed diverticulitis/Colitis #Urinary retention/Frequency - UA negative, suspect underlying BPH. Vasques placed. #Morbid obesity with BMI of 49.1 kg/m #Hematochezia - post procedure 12/10/19 Post procedure hematochezia is expected. Reassured patient. Rpt CBC in AM tomorrow. Monitor CBC Voiding trial today. Pt's family member plan to come pick him up tomorrow, lives 3 hr away. Path pending. Expecting d/c tomorrow AM if medically stable, with outpatient follow up. Plan of cares, d/w pt and nursing staff at bedside 12/09/19 s/p colonoscopy with biopsied of cecal mass. PATH pending. Pt will likely need to transfer to tertiary care center or follow up with surgical oncologist and GI as outpatient for further eval of pancreatic mass. Pt is unfunded and not from here locally. Will consult our CM for further assistance. Will keep Vasques in for 1 more days, and voiding trial in AM. cont Flomax. cont empiric IV abx. Appreciate input from specialists. 12/08/19 Cont current empiric IV abx. GI plan for colonoscopy tomorrow. Leave Vasques in place. Consider voiding trial in couple days prior to discharge. Pt will need further workup at tertiary care center including EUS and eval by surgical oncologist for Whipple procedure, which cannot be done here at our facility. He has no coverage, so referral is difficult. Will consult our CM. PSA slightly elevated. CEA wnl. CA 19-9 pending. Cont supportive cares. Pt is quite depressed given his current situation, will start him on Zoloft at bedtime and prn Xanax. No HI/SI. 12/07/19 Clinically improving, patient is tolerating regular diet and abd pain has improved; however, will change to clear liquid diet, with anticipation further work-up is required given CT findings. Consult on GI and surgery for further work-up. Patient will likely need tissue biopsy. Check tumor markers including CEA, CA 19-9, PSA Given his urinary retention/frequency, his UA was unremarkable. We will do a bladder scan, start him on Flomax empirically. Continue empiric IV antibiotics for now. Hold Lovenox, start SCD for DVT prophylaxis with anticipation of further procedure is needed; will resume Lovenox once w/u complete.
[2019-12-10 16:36] LABS: #Basophils 0.1 thou/uL (0.0-0.2); #Eosinphils 0.1 thou/uL (0.0-0.7); #Lymphocytes 1.3 thou/uL (1.20-3.40); #Monocytes 0.8 thou/uL (0.11-0.59); #Neutrophils 5.7 thou/uL (1.40-6.50); %Basophils 0.8 % (0.0-1.0); %Eosinophils 1.3 % (0.0-10.0); %Lymphocytes 15.9 % (21.0-51.0); %Monocytes 10.4 % (0.0-10.0); %Neutrophils 71.6 % (42.0-75.0); Hemoglobin 13.5 g/dL (14.0-18.0); Mean Corpuscular HGB CONC 34.1 g/dL (32.0-36.0); Mean Corpuscular Hemoglobin 32.2 pg (27.0-31.0); Mean Corpuscular Volume 94.3 fL (78.0-98.0); Mean Platelet Volume 8.6 fL (7.4-10.4); Platelet Count 158 thou/uL (130-400); Red Blood Cell (RBC) Count 4.18 mill/uL (4.70-6.10); White Blood Cell (WBC) Count 7.9 thou/uL (4.8-10.8)
[2019-12-10] MEDS ORDERED: GoLYTELY 4,000 ml Bottle PO SCH (20:00)
--- NOTE | 2019-12-10 20:33 | PRG ---
DATE OF SERVICE: 12/10/2019 SUBJECTIVE: Overall, the patient feels fine. However, he has had 5 episodes of bloody stool today. Last episode occurred an hour ago, consists of bright red blood and congealed blood including some clots. He denies any abdominal pain. There is no nausea or vomiting. PHYSICAL EXAMINATION: VITAL SIGNS: Temperature 98.7, blood pressure 137/78, pulse is 102. GENERAL: He is alert, conversant, without distress. HEENT: Shows anicteric sclerae. Oropharynx is clear and moist. CV: Shows normal S1, S2. Regular rate and rhythm. CHEST: Shows breath sounds. ABDOMEN: Very protuberant, but soft and nontender. No distention. No tympany. Organomegaly cannot be assessed secondary to size. EXTREMITIES: Show no edema. LABORATORY DATA: WBC 7.9, hemoglobin 13.5, and platelet count of 158. Electrolytes within normal range. Creatinine 1.09. LFTs are normal. Pathology: Cecal mass, adenocarcinoma, and all colon polyps came back as tubular adenoma. ASSESSMENT: 1. Hematochezia/rectal bleeding today. Several episodes consist of clots and bright red blood, concerning for postpolypectomy bleed. 2. Cecal cancer. 3. Undefined pancreatic mass, needing EUS. 4. Bladder retention. RECOMMENDATIONS: 1. The patient will need to be re-scoped for possible postpolypectomy bleed before discharge, bowel prep tonight to be followed by colonoscopy to Dr. Blanco in a.m. 2. Disposition for his cecal mass and pancreatic lesion will be difficult as the patient was self-funded. He would be best served at a tertiary care with availability of EUS to further define the pancreatic lesion prior to any therapy or treatment for his cecal cancer. He understands the situation. 3. Dr. Blanco will perform the colonoscopy tomorrow for possible postpolypectomy bleed. We will continue to trend his blood count in the morning. Job ID: [id number]
[2019-12-10] MEDS: Atorvastatin Calcium 40 MG TAB PO SCH (20:59)
[2019-12-11] MEDS: Cipro 250 MG TAB PO SCH ×2 (05:58→20:28)
[2019-12-11 07:19] LABS: #Basophils 0.1 thou/uL (0.0-0.2); #Eosinphils 0.1 thou/uL (0.0-0.7); #Lymphocytes 1.4 thou/uL (1.20-3.40); #Monocytes 1.1 thou/uL (0.11-0.59); #Neutrophils 5.8 thou/uL (1.40-6.50); %Basophils 0.7 % (0.0-1.0); %Eosinophils 1.5 % (0.0-10.0); %Lymphocytes 16.3 % (21.0-51.0); %Monocytes 12.8 % (0.0-10.0); %Neutrophils 68.7 % (42.0-75.0); Hemoglobin 13.1 g/dL (14.0-18.0); Mean Corpuscular HGB CONC 33.4 g/dL (32.0-36.0); Mean Corpuscular Hemoglobin 31.8 pg (27.0-31.0); Mean Corpuscular Volume 95.2 fL (78.0-98.0); Mean Platelet Volume 8.6 fL (7.4-10.4); Platelet Count 164 thou/uL (130-400); Red Blood Cell (RBC) Count 4.12 mill/uL (4.70-6.10); White Blood Cell (WBC) Count 8.5 thou/uL (4.8-10.8)
[2019-12-11] MEDS ORDERED: PROPOFOL 200 MG/20 ML VIAL ONE (10:18)
[2019-12-11] MEDS ORDERED: Promethazine HCl 25 MG/ML VIAL IM PRN (12:29)
[2019-12-11] MEDS ORDERED: Promethazine HCl 25 MG/ML VIAL SLOW IVP PRN (12:29)
[2019-12-11] MEDS ORDERED: Ondansetron HCl/PF 4 MG/2 ML Vial IVP PRN (12:29)
[2019-12-11] MEDS: Phenazopyridine HCl 100 MG TAB PO SCH ×3 (13:21→18:08)
[2019-12-11] MEDS: Famotidine 20 MG TAB PO SCH ×2 (13:22→20:27)
[2019-12-11] MEDS: Tamsulosin HCl 0.4 MG CAP PO SCH (13:22)
[2019-12-11] MEDS: Finasteride 5 MG TAB PO SCH (13:22)
[2019-12-11] MEDS: metroNIDAZOLE 500 MG TAB PO SCH ×3 (13:23→20:28)
--- NOTE | 2019-12-11 13:55 | PDOC.HOSPP ---
- Subjective Subjective: Hb stable. no further bleeding noted. plans for rescope today, concerning for post-polypectomy bleed Vasques has to reinserted, failed voiding trial - Objective Vital Signs & Weight: Vital Signs (12 hours) Temp Pulse Resp BP BP Pulse Ox 12/11/19 13:24 97.5 F L 82 20 188/84 H 96 12/11/19 08:00 98.0 F 87 18 156/80 H 97 Weight Admit Weight 357 lb 11.2 oz Weight 362 lb I&O: 12/10/19 12/11/19 12/12/19 06:59 06:59 06:59 Intake Total 1760 1695 Output Total 1150 1540 350 Balance 610 155 -350 Result Diagrams: 12/11/19 06:52 12/08/19 03:31 Hospitalist ROS - Medication Medications: Active Medications Generic Name Dose Route Start Last Admin Trade Name Freq PRN Reason Stop Dose Admin Hydrocodone Bitart/Acetaminophen 1 tab 12/05/19 01:13 12/07/19 20:18 [place] 5/325 PO 1 tab Q4H PRN Administration Moderate Pain (4-6) Alprazolam 0.5 mg 12/08/19 08:11 12/08/19 22:13 Xanax PO 0.5 mg TIDPRN PRN Administration Anxiety Aspirin 81 mg 12/05/19 09:00 12/10/19 08:28 Ecotrin PO 81 mg DAILY APURVA Administration Atorvastatin Calcium 40 mg 12/05/19 21:00 12/10/19 20:59 Lipitor PO 40 mg HS APURVA Administration Ciprofloxacin 250 mg 12/05/19 06:00 12/11/19 05:58 Cipro PO 250 mg 0600,2000 APURVA Administration Famotidine 20 mg 12/05/19 09:00 12/11/19 13:22 Pepcid PO 20 mg BID APURVA Administration Finasteride 5 mg 12/11/19 09:00 12/11/19 13:22 Proscar PO 5 mg DAILY APURVA Administration Metronidazole 500 mg 12/05/19 09:00 12/11/19 13:23 Flagyl PO 500 mg TID APURVA Administration Morphine Sulfate 2 mg 12/05/19 01:13 12/07/19 22:43 Morphine SLOW IVP 2 mg Q4H PRN Administration Moderate to Severe Pain (4-10) Phenazopyridine HCl 100 mg 12/07/19 09:00 12/11/19 13:23 Pyridium PO Not Given PC APURVA Sertraline HCl 50 mg 12/08/19 21:00 12/10/19 20:59 Zoloft PO 50 mg HS APURVA Administration Sodium Chloride 10 ml 12/06/19 09:00 12/11/19 13:23 Flush - Normal Saline IVF Not Given Q12HR APURVA Tamsulosin HCl 0.4 mg 12/08/19 09:00 12/11/19 13:22 Flomax PO 0.4 mg DAILY APURVA Administration Hosp A/P - Plan General Appearance: NAD, awake alert Eye: PERRL, anicteric sclera ENT: normocephalic atraumatic, no oropharyngeal lesions Neck: supple, no JVD Heart: RRR, no murmur, no gallops Respiratory: CTAB, no wheezes Gastrointestinal: soft, non-tender, normal bowel sounds Gastrointestinal - other findings: obese Extremities: no cyanosis, no clubbing, no edema Skin: normal turgor Neurological: cranial nerve grossly intact, no focal deficits Musculoskeletal: normal tone, normal strength Psychiatric: normal affect, normal behavior, A&O x 3 ASSESSMENT and plan: This is unfortunate 59 years old gentleman who was presented with abdominal discomfort/diarrhea, initially admitted on 12/05/2019 for presumed diverticulitis/colitis. Further work-up on repeated CT scan, demonstrated 1.2 pancreatic mass, as well as cecal mass and enlarged appendix concerning for possible underlying malignancy. #1.2 cm pancreatic mass and cecal mass (7 x 5.3 x 3.3 cm) concerning for underlying malignancy, unknown primary suspect pancreatic cancer. s/p colonoscopy on 12/09/19 #Dilated appendix - early appendicitis vs neoplastic process on CT - abd exam benign #Presumed diverticulitis/Colitis #Urinary retention/Frequency - UA negative, suspect underlying BPH. Vasques reinserted, failed voiding trial #Morbid obesity with BMI of 49.1 kg/m #Hematochezia - post procedure, resolved. Hb stable 12/11/19 Hb stable, plan for rpt colonoscopy today. Fail voiding trial. Vasques has to be reinserted. Cont Flomax, add Proscar cont supportive cares. rpt CBC in AM. Cecal mass Path: invasive adenocarcinoma. Pt plans to follow up at his home town. 12/10/19 Post procedure hematochezia is expected. Reassured patient. Rpt CBC in AM tomorrow. Monitor CBC Voiding trial today. Pt's family member plan to come pick him up tomorrow, lives 3 hr away. Path pending. Expecting d/c tomorrow AM if medically stable, with outpatient follow up. Plan of cares, d/w pt and nursing staff at bedside 12/09/19 s/p colonoscopy with biopsied of cecal mass. PATH pending. Pt will likely need to transfer to tertiary care center or follow up with surgical oncologist and GI as outpatient for further eval of pancreatic mass. Pt is unfunded and not from here locally. Will consult our CM for further assistance. Will keep Vasques in for 1 more days, and voiding trial in AM. cont Flomax. cont empiric IV abx. Appreciate input from specialists. 12/08/19 Cont current empiric IV abx. GI plan for colonoscopy tomorrow. Leave Vasques in place. Consider voiding trial in couple days prior to discharge. Pt will need further workup at tertiary care center including EUS and eval by surgical oncologist for Whipple procedure, which cannot be done here at our facility. He has no coverage, so referral is difficult. Will consult our CM. PSA slightly elevated. CEA wnl. CA 19-9 pending. Cont supportive cares. Pt is quite depressed given his current situation, will start him on Zoloft at bedtime and prn Xanax. No HI/SI. 12/07/19 Clinically improving, patient is tolerating regular diet and abd pain has improved; however, will change to clear liquid diet, with anticipation further work-up is required given CT findings. Consult on GI and surgery for further work-up. Patient will likely need tissue biopsy. Check tumor markers including CEA, CA 19-9, PSA Given his urinary retention/frequency, his UA was unremarkable. We will do a bladder scan, start him on Flomax empirically. Continue empiric IV antibiotics for now. Hold Lovenox, start SCD for DVT prophylaxis with anticipation of further procedure is needed; will resume Lovenox once w/u complete.
--- NOTE | 2019-12-11 18:24 | OP ---
DATE OF PROCEDURE: 12/11/2019 PREPROCEDURE DIAGNOSES: 1. Rectal bleeding. 2. Recent colonoscopy 72 hours ago with copious biopsies of the cecal mass and removal of several polyps. Concern for possible post polypectomy bleeding. Character of bleeding has slowed overnight. 3. Stable hemoglobin at 13. POSTPROCEDURE DIAGNOSIS: 1. Necrotic mass in the cecum. 2. Two polypectomy sites identified, one in the ascending colon with visible vessel, but no active bleeding and no clot, clipped, and a 1 cm polypectomy site in the sigmoid colon, which had some vessels in the base with no active bleeding and no clots, it was clipped as well polypectomy sites removed by cold snare and have healed. RECOMMENDATIONS: If the patient has ongoing hemorrhage, remove the necrotic cecal mass. ANESTHESIA: TIVA. DESCRIPTION OF PROCEDURE: After the patient was informed of the risk, benefits, and possible complications of endoscopy including perforation, reaction to medication, aspiration, informed consent was obtained. The patient was brought to the endoscopy suite, where he was sedated in gradual fashion. Once he was comfortable, a rectal exam was performed. There was no blood. The endoscope was advanced into the anal canal from the colon to the cecum, which was identified by the ileocecal valve and appendiceal orifice. The necrotic cecal mass was identified. There was no blood there. There were no clots. There was multiple vessels exposed on that mass, could have bled. There was a polypectomy site in the ascending colon and one in the sigmoid colon, both of which were hot polypectomy sites, correlate to the previous endoscopic report from 72 hours ago. These both had visible vessels in the base. The one in the ascending colon looked a little bit more likely to one that bled. They were both clipped. The other three polypectomy sites had healed. These were cold snare sites and these do not typically bleed. Retroflexed views were normal. The scope was removed. The patient tolerated the procedure well. There were no complications. We will follow from a distance. If GI can be of any further assistance in the patient's care, please do not hesitate to contact us. Job ID: [id number]
[2019-12-11] MEDS: Atorvastatin Calcium 40 MG TAB PO SCH (20:28)
[2019-12-12] MEDS: Cipro 250 MG TAB PO SCH (06:02)
[2019-12-12 06:56] LABS: #Eosinphils 0.2 thou/uL (0.0-0.7); #Lymphocytes 1.3 thou/uL (1.20-3.40); #Monocytes 0.8 thou/uL (0.11-0.59); #Neutrophils 4.7 thou/uL (1.40-6.50); %Basophils 0.7 % (0.0-1.0); %Eosinophils 2.3 % (0.0-10.0); %Lymphocytes 18.4 % (21.0-51.0); %Monocytes 11.5 % (0.0-10.0); %Neutrophils 67.1 % (42.0-75.0); Hemoglobin 13.8 g/dL (14.0-18.0); Mean Corpuscular HGB CONC 32.8 g/dL (32.0-36.0); Mean Corpuscular Hemoglobin 31.8 pg (27.0-31.0); Mean Platelet Volume 8.6 fL (7.4-10.4); Platelet Count 175 thou/uL (130-400); RBC Distribution Width 12.2 % (11.5-14.5); Red Blood Cell (RBC) Count 4.35 mill/uL (4.70-6.10)
[2019-12-12 07:16] LABS: ALT (SGPT) 33 U/L (8-55); AST (SGOT) 39 U/L (5-34); Albumin 3.3 g/dL (3.5-5.0); Alkaline Phosphatase 55 U/L (40-110); Anion Gap 13 mmol/L (10-20); BUN (Urea Nitrogen) 7 mg/dL (8.4-25.7); Bilirubin, Total 0.4 mg/dL (0.2-1.2); Calc. Creatinine Clearance 218 mL/min (70-130); Calcium 8.6 mg/dL (7.8-10.44); Carbon Dioxide 22 mmol/L (22-29); Chloride 107 mmol/L (98-107); Estimated GFR-MDRD 90; Globulin 2.5 g/dL (2.4-3.5); Glucose 110 mg/dL (70-105); Potassium 3.9 mmol/L (3.5-5.1); Protein, Total 5.8 g/dL (6.0-8.3); Sodium 138 mmol/L (136-145)
[2019-12-12] MEDS: metroNIDAZOLE 500 MG TAB PO SCH (08:27)
[2019-12-12] MEDS: Phenazopyridine HCl 100 MG TAB PO SCH ×2 (08:27→13:43)
[2019-12-12] MEDS: Famotidine 20 MG TAB PO SCH (08:27)
[2019-12-12] MEDS: Finasteride 5 MG TAB PO SCH (08:27)
[2019-12-12] MEDS: Tamsulosin HCl 0.4 MG CAP PO SCH (08:27)
[2019-12-12] MEDS: Aspirin 81 mg Enteric Coated Tablet PO SCH (08:27)
[2019-12-12 08:38] VITALS: BP 133/71; TEMP 99
--- NOTE | 2019-12-12 13:29 | PDOC.GSPN ---
Surgery Progress Note: Subj - Subjective Narrative: Patient is feeling okay. No further bleeding since his second colonoscopy. No active bleeding seen at the time of colonoscopy but two potential bleeding sites clipped. H&H have been stable with only mild drop after his first colonoscopy. Pathology is still pending. Abdomen is completely benign. Assessment/plan: Right colon and pancreatic masses. Some minor postbiopsy bleeding which is stopped by the time of his repeat colonoscopy. He knows to seek immediate assistance if he has any recurrent bleeding. He understands that he requires a higher level of care than can be provided here, and if he has any recurrent problems he should seek care at a tertiary care center in [place] or some other [facility]. We will try to get him as much of his medical record as possible to take home with him, including radiology images burned to a CD. Surgery Progress Note: Obj - Vital signs Vital signs: Vital Signs - Most Recent Temp Pulse Resp BP Pulse Ox 99.0 F 97 18 133/71 94 L 12/12/19 08:30 12/12/19 08:30 12/12/19 08:30 12/12/19 08:30 12/12/19 08:30 Surgery Progress Note: Results - Labs Result Diagrams: 12/12/19 06:36 12/12/19 06:36 Lab results: Laboratory Results - last 24 hr 12/12/19 12/12/19 06:36 06:36 WBC 7.0 RBC 4.35 L Hgb 13.8 L Hct 42.2 MCV 97.0 MCH 31.8 H MCHC 32.8 RDW 12.2 Plt Count 175 MPV 8.6 Neutrophils % 67.1 Lymphocytes % 18.4 L Monocytes % 11.5 H Eosinophils % 2.3 Basophils % 0.7 Neutrophils # 4.7 Lymphocytes # 1.3 Monocytes # 0.8 H Eosinophils # 0.2 Basophils # 0.0 Sodium 138 Potassium 3.9 Chloride 107 Carbon Dioxide 22 Anion Gap 13 BUN 7 L Creatinine 0.87 Estimated GFR (MDRD) 90 Glucose 110 H Calcium 8.6 Total Bilirubin 0.4 AST 39 H ALT 33 Alkaline Phosphatase 55 Serum Total Protein 5.8 L Albumin 3.3 L Globulin 2.5 Albumin/Globulin Ratio 1.3
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
--- NOTE | 2019-12-13 13:05 | DIS ---
DATE OF ADMISSION: 12/06/2019 DATE OF DISCHARGE: 12/12/2019 DISCHARGE DIAGNOSES: 1. Colitis. 2. History of diverticulitis. 3. Chest pain. 4. Possible pancreatic mass. 5. History of lower gastrointestinal bleeding. DISCHARGE MEDICATIONS: 1. Ciprofloxacin 500 mg orally twice daily for 10 days. 2. Flagyl 500 mg orally t.i.d. for 14 days. HISTORY OF PRESENT ILLNESS AND HOSPITAL COURSE: The patient is a 59-year-old male with past medical history of colitis, diverticulosis, and depression in addition to obesity who presented to the hospital with lower abdominal pain and diarrhea. CT scan of the abdomen revealed cecal colitis. The patient was admitted to the hospital and started on IV antibiotics and IV fluids. This has led to improvement of his symptoms within [address] scan also showed hypoechoic pancreatic lesion and a mass could not be excluded. Outpatient followup with PCP with GI referral was recommended to the patient. Job ID: [id number]
--- NOTE | 2019-12-15 07:01 | PQF ---
CLINICAL DOCUMENTATION CLARIFICATION FORM: Dear : DEMARCO DALTON Date / Time: 12/15/19 Please exercise your independent, professional judgment in responding to the clarification form. Clinical indicators are provided on the bottom of this form for your review Please check appropriate box(es) to clarify if the following diagnosis has been ruled in our ruled out: [ ] Sepsis Ruled in diagnosis [ ] Continue to treat [ ] Resolved [ X] Sepsis Ruled out diagnosis [ ] Improving [ ] Cannot rule out diagnosis [ ] Other diagnosis (please specify if any) [ ] Unable to determine In addition, please specify: Present on Admission (POA): [ ] Yes [ ] No [ ] Unable to determine To be completed by CDI/Coding staff for physician review: Present Clinical Indicators - Signs / Symptoms / Labs Results and Location in Medical Record [ X] Sepsis due to colitis -Tachycardia , leukocytosis H&P 12/04 , Garrison Hollins MD [ X ] Presumed Colitis/Diverticulitis H&P 12/04 , Garrison Hollins MD [ X ] The patient is to continue with IV antibiotic with his abdominal pain Discharge summary 11/10 ,Demarco Dalton MD [ X ] He had a CT scan of abdomen showed possible mass in pancreas as well as right colitis and he was admitted and placed on IV antibiotics Discharge summary 11/10 ,Demarco Dalton MD Present Risk Factors Results and Location in Medical Record [ X ] Infectious colitis Discharge summary 12/11 by Demarco Dalton MD Present Treatments Results and Location in Medical Record [ X ] Ciprofloxacin 250 mg PO JUN 15 to 12/11 [X ] Flagyl 500 mg PO JUN 15 to 12/11 [ X ] IV Sodium chloride JUN 15 to 12/09 [ ] CDS/Toe Puller Signature: Phone #: Date/Time: 12/15/19 This is a permanent part of the Medical Record [facility]
== END 2019-12-12 13:55 | disposition home or self-care (01) | DRG 375 ==
LOC: ERS 23:27 → 2SW 12-05 00:16 → OBSVTOIN 12-06 14:29 → ONC 12-07 17:46
PROVIDERS: ADMIT Internal Medicine; ATTEND Internal Medicine
PROC: 0DBM8ZZ Excision of Descending Colon, Via Natural or Artificial Opening Endoscopic (ICD-10-PCS; principal; 2019-12-09)
PROC: 0DBL8ZZ Excision of Transverse Colon, Via Natural or Artificial Opening Endoscopic (ICD-10-PCS; 2019-12-09)
PROC: 0DBN8ZZ Excision of Sigmoid Colon, Via Natural or Artificial Opening Endoscopic (ICD-10-PCS; 2019-12-09)
PROC: 0DBH8ZX Excision of Cecum, Via Natural or Artificial Opening Endoscopic, Diagnostic (ICD-10-PCS; 2019-12-09)
PROC: 0T9B70Z Drainage of Bladder with Drainage Device, Via Natural or Artificial Opening (ICD-10-PCS; 2019-12-09)
PROC: 0W3P8ZZ Control Bleeding in Gastrointestinal Tract, Via Natural or Artificial Opening Endoscopic (ICD-10-PCS; 2019-12-11)
DX: C18.0 Malignant neoplasm of cecum (principal); A09 Infectious gastroenteritis and colitis, unspecified; J98.11 Atelectasis; K62.5 Hemorrhage of anus and rectum; K91.840 Postprocedural hemorrhage of a digestive system organ or structure following a digestive system procedure; D12.4 Benign neoplasm of descending colon; E66.9 Obesity, unspecified; K64.8 Other hemorrhoids; E66.01 Morbid (severe) obesity due to excess calories; R33.9 Retention of urine, unspecified; D12.5 Benign neoplasm of sigmoid colon; D12.3 Benign neoplasm of transverse colon; N13.9 Obstructive and reflux uropathy, unspecified; F32.9 Major depressive disorder, single episode, unspecified; Z84.2 Family history of other diseases of the genitourinary system; Z88.0 Allergy status to penicillin; Z91.010 Allergy to peanuts; Z91.011 Allergy to milk products; Y83.8 Other surgical procedures as the cause of abnormal reaction of the patient, or of later complication, without mention of misadventure at the time of the procedure
CPT/HCPCS: 36415; 74177; 80048; 80053; 81001; 82378; 83630; 83735; 84153; 84484; 85025; 85610; 86301; 87045; 87046; 87324; 87328; 87329; 87427; 87449; 87635; 88305; 88361; 93005; 96372; G0378; J1650; J2270; J2704; J3475; U0003